=== PATIENT | female | born 1975 | race African-American/Black ===

== ENCOUNTER 2017-09-23 22:25 | Emergency (ER) | payer MEDICAID | END 2017-09-24 00:46 | disposition home or self-care (01) | LOC: D.ER 22:25 | DX: S39.012A Strain of muscle, fascia and tendon of lower back, initial encounter (principal); V43.52XA Car driver injured in collision with other type car in traffic accident, initial encounter; Y93.89 Activity, other specified; Y92.410 Unspecified street and highway as the place of occurrence of the external cause ==

== ENCOUNTER 2019-10-12 19:40 | Emergency (ER) | payer MEDICARE ==
[~2019-10-12] VITALS: Ht 172.7 cm; Wt 113.6 kg
[2019-10-12 19:47] VITALS: Ht 172.7 cm; Wt 113.6 kg
[2019-10-12] MEDS ORDERED: CATAPRES0.1 MG (19:49)
[2019-10-12] MEDS ORDERED: HYDROCODON-ACE1 EA10 PO (19:49)
[2019-10-12] MEDS ORDERED: COREG6.25 MG (19:49)
[2019-10-12] MEDS ORDERED: HYDROCHLOROTHIA25 MG (19:49)
[2019-10-12] MEDS ORDERED: HYDRALAZINE HCL10 MG (19:49)
[2019-10-12 20:17] LABS: BASOPHILS 0.3 % (0-2); EOSINOPHILS 3.4 % (0-7); HEMATOCRIT 40.3 % (36.0-48.0); HEMOGLOBIN 12.6 g/dL (12-16); IMMATURE GRANULOCYTES 0.3 % (0-5); LYMPHOCYTES 31.3 % (15-50); MCH 26.3 pg (26.0-34.0); MCHC 31.3 g/dL (31.0-37.0); MCV 84.1 fL (80.0-100.0); MEAN PLATELET VOLUME 9.3 fL (7.4-10.4); MONOCYTES 7.9 % (2-11); NEUTROPHILS 56.8 % (40-80); PLATELET COUNT 378 10x3/uL (130-400); RBC 4.79 10x6/uL (4.00-5.40); RDW 15.1 % (11.5-14.5); WBC 9.7 10x3/uL (4.8-10.8)
[2019-10-12 20:30] LABS: C-REACTIVE PROTEIN 1.7 mg/dL (0.0-0.9); URIC ACID 6.1 mg/dL (2.6-7.2)
[2019-10-12] MEDS ORDERED: VOLTAREN75 MG PO (21:07)
[2019-10-12] MEDS ORDERED: CLEOCIN HCL300 MG PO (21:07)
[2019-10-12 21:21] VITALS: BP 173/195
[2019-10-12 21:26] LABS: ERYTHROCYTE SEDIMENTATION RATE 44 mm/hr (0-20)
== END 2019-10-12 21:23 | disposition home or self-care (01) ==
LOC: D.ER 19:40
PROVIDERS: Family Medicine
DX: M25.522 Pain in left elbow (principal); M25.422 Effusion, left elbow; M79.89 Other specified soft tissue disorders; I10 Essential (primary) hypertension